=== PATIENT | female | born 1965 | race Caucasian/White ===

== ENCOUNTER 2017-05-23 22:16 | Observation (INO) | payer BC, OTHER ==
[2017-05-23] MEDS ORDERED: Zofran 4 MG/2 ML VIAL ONE (22:28)
[2017-05-23] MEDS ORDERED: Sodium Chloride 0.9% 1000 ML 1,000 ML ONE ×2 (22:29→23:15)
[2017-05-23] MEDS ORDERED: Sodium Chloride 0.9% 1000 ML 1,000 ML IV STA ×2 (22:37→23:20)
[2017-05-23] MEDS ORDERED: Zofran 4 MG/2 ML VIAL IV ONE (22:37)
--- NOTE | 2017-05-23 22:44 | ERPHSYRPT ---
- History of Present Illness Time Seen by Provider: 05/23/17 22:39 Source: patient Exam Limitations: no limitations Physician History: The patient is a 52-year-old female brought in by a neighbor complaining of vomiting excessively for 3 days. She believes that she may have passed out earlier today. She is lightheaded upon standing. Her abdomen hurts. She denies diarrhea. Her past medical history is significant for hypertension and anxiety. She does not drink alcohol. Timing/Duration: day(s) (3) Severity: severe Modifying Factors: Improves With: nothing Associated Symptoms: nausea, vomiting, abdominal pain Allergies/Adverse Reactions: cefoxitin [Cefoxitin] Allergy (Verified 05/23/17 22:41) Hives morphine Allergy (Verified 05/23/17 22:41) Swelling Home Medications: No Home Meds [No Home Meds] 1 [facility] UD 12/02/13 [History] Hx Tetanus, Diphtheria Vaccination/Date Given: Yes Hx Influenza Vaccination/Date Given: No Hx Pneumococcal Vaccination/Date Given: No - Review of Systems Constitutional: Weakness Eyes: No Symptoms Ears, Nose, & Throat: No Symptoms Respiratory: No Cough, No Dyspnea Cardiac: No Chest Pain, No Edema, No Syncope Abdominal/Gastrointestinal: Abdominal Pain, Nausea, Vomiting Genitourinary Symptoms: No Dysuria Musculoskeletal: No Back Pain, No Neck Pain Skin: No Rash Neurological: No Dizziness, No Focal Weakness, No Sensory Changes Psychological: No Symptoms Endocrine: No Symptoms Hematologic/Lymphatic: No Symptoms Immunological/Allergic: No Symptoms All Other Systems: Reviewed and Negative - Past Medical History Pertinent Past Medical History: Yes Neurological History: No Pertinent History ENT History: No Pertinent History Cardiac History: No Pertinent History Respiratory History: No Pertinent History Endocrine Medical History: No Pertinent History Musculoskeletal History: No Pertinent History History: Other Psycho-Social History: Anxiety, Depression - Past Surgical History Past Surgical History: Yes Female Surgical History: Hysterectomy Other Surgical History: bone marrow - Social History Smoking Status: Current every day smoker How long have you smoked: 4 Exposure to second hand smoke: Yes Drug Use: none Patient Lives Alone: No - Female History Hx Now: No - Nursing Vital Signs Nursing Vital Signs: Initial Vital Signs Temperature 97.6 F 05/23/17 22:17 Pulse Rate 134 H 05/23/17 22:17 Respiratory Rate 24 05/23/17 22:17 Blood Pressure 87/58 05/23/17 22:17 O2 Sat by Pulse Oximetry 98 05/23/17 22:17 Pain Scale Pain Intensity 0 - Physical Exam General Appearance: moderate distress Eye Exam: PERRL/EOMI, eyes nml inspection Ears, Nose, Throat Exam: dry mucous membranes Neck Exam: normal inspection, non-tender, supple, full range of motion Respiratory Exam: normal breath sounds, lungs clear, No respiratory distress Cardiovascular Exam: tachycardia Gastrointestinal/Abdomen Exam: tenderness Pelvic Exam: not done Rectal Exam: not done Back Exam: normal inspection, normal range of motion, No CVA tenderness, No vertebral tenderness Extremity Exam: normal inspection, normal range of motion, pelvis stable Neurologic Exam: alert, oriented x 3, cooperative, normal mood/affect, nml cerebellar function, nml station & gait, sensation nml, No motor deficits Skin Exam: normal color, warm, dry, No rash Lymphatic Exam: No adenopathy SpO2 Interpretation: normal - Radiology Exams Abdomen X-ray Interpretation: Interpreted by me, Negative (NO obstruction. Increased colonic fecal load, Neg chest.) Ordered Tests: Active Orders 24 hr Category Date Time Status IV Insertion STAT Care 05/23/17 22:37 Active Orthostatic Vital Signs STAT Care 05/23/17 22:37 Active OBSTR/ACUTE ABDOMEN SERIES Stat Exams 05/23/17 22:37 Taken CBC W DIFF Stat Lab 05/23/17 22:30 Completed CMP Stat Lab 05/23/17 22:30 Completed HCG QUALITATIVE,SERUM Stat Lab 05/23/17 22:30 Completed LIPASE Stat Lab 05/23/17 22:30 Completed Lactic Acid Stat Lab 05/23/17 22:50 Results UA W/ MICROSCOPIC Stat Lab 05/23/17 22:30 Completed Medication Summary Generic Name Dose Route Start Last Admin Trade Name Freq PRN Reason Stop Dose Admin Sodium Chloride 1,000 mls @ 999 mls/hr 05/23/17 22:37 05/23/17 22:41 Sodium Chloride 0.9% 1000 Ml IV 05/23/17 23:37 999 mls/hr .Q1H1M STA Administration Potassium Chloride 20 meq in 100 mls @ 50 mls/hr 05/23/17 23:21 05/23/17 23: 26 Potassium Chloride 20 Meq In Water 100ml IV 05/24/17 01:20 50 mls/hr STAT ONE Administration Sodium Chloride 1,000 mls @ 999 mls/hr 05/23/17 23:20 05/23/17 23:26 Sodium Chloride 0.9% 1000 Ml IV 05/24/17 00:20 999 mls/hr .Q1H1M STA Administration Discontinued Medications Generic Name Dose Route Start Last Admin Trade Name Sonam PRN Reason Stop Dose Admin Sodium Chloride Confirm 05/23/17 22:29 Sodium Chloride 0.9% 1000 Ml Administered 05/23/17 22:30 Dose 1,000 mls @ ud .ROUTE .STK-MED ONE Sodium Chloride Confirm 05/23/17 23:15 Sodium Chloride 0.9% 1000 Ml Administered 05/23/17 23:16 Dose 1,000 mls @ ud .ROUTE .STK-MED ONE Potassium Chloride Confirm 05/23/17 23:16 Potassium Chloride 20 Meq In Water 100ml Administered 05/23/17 23:17 Dose 100 mls @ ud IV .STK-MED ONE Ondansetron HCl Confirm 05/23/17 22:28 Zofran 4 Mg/2 Ml Vial Administered 05/23/17 22:29 Dose 4 mg .ROUTE .STK-MED ONE Ondansetron HCl 4 mg 05/23/17 22:37 05/23/17 22:41 Zofran 4 Mg/2 Ml Vial IV 05/23/17 22:38 4 mg STAT ONE Administration Lab/Rad Data: Laboratory Result Diagrams 05/23/17 22:30 05/23/17 22:30 Laboratory Results 05/23/17 05/23/17 05/23/17 Range/Units 22:50 22:30 22:30 WBC 17.1 H (4.0-10.5) K/mm3 RBC 4.33 (4.1-5.4) M/mm3 Hgb 13.9 (12.0-16.0) gm/dl Hct 41.0 (35-47) % MCV 94.7 (78-100) fl MCH 32.1 H (26-32) pg MCHC 33.9 (32-36) g/dl RDW 12.7 (11.5-14.0) % Plt Count 845 H (150-450) K/mm3 MPV 9.3 (6-9.5) fl Gran % 78.0 H (36.0-66.0) % Lymphocytes % 15.2 L (24.0-44.0) % Monocytes % 6.6 (0.0-12.0) % Eosinophils % 0.1 (0.00-5.0) % Basophils % 0.1 (0.0-0.4) % Basophils # 0.02 (0-0.4) Sodium (136-145) mEq/L Potassium (3.5-5.1) mEq/L Chloride (98-107) mEq/L Carbon Dioxide (21-32) mEq/L Anion Gap (5-15) MEQ/L BUN (9-20) mg/dL Creatinine (0.55-1.30) mg/dl Estimated GFR ML/MIN Glucose (70-110) MG/DL Lactic Acid 5.8 H (0.4-2.0) Calcium (8.5-10.1) mg/dL Total Bilirubin (0.2-1.0) mg/dL AST (15-37) U/L ALT (12-78) U/L Alkaline Phosphatase (46-116) U/L Serum Total Protein (6.4-8.2) gm/dL Albumin (3.4-5.0) g/dL Lipase (73-393) U/L Serum , Qual NEGATIVE (Negative) Ur Collection Type Urine Color (YELLOW) Urine Appearance (CLEAR) Urine pH (5-6) Ur Specific [place] (1.005-1.025) Urine Protein (Negative) Urine Ketones (NEGATIVE) Urine Blood (0-5) Stephen/ul Urine Nitrite (NEGATIVE) Urine Bilirubin (NEGATIVE) Urine Urobilinogen (0-1) mg/dL Ur Leukocyte Esterase (NEGATIVE) Urine Microscopic RBC (0-2) /HPF Urine Microscopic WBC (0-5) /HPF Ur Epithelial Cells (FEW) /HPF Urine Glucose (NEGATIVE) mg/dL Specimen Received 05/23/17 05/23/17 Range/Units 22:30 22:30 WBC (4.0-10.5) K/mm3 RBC (4.1-5.4) M/mm3 Hgb (12.0-16.0) gm/dl Hct (35-47) % MCV (78-100) fl MCH (26-32) pg MCHC (32-36) g/dl RDW (11.5-14.0) % Plt Count (150-450) K/mm3 MPV (6-9.5) fl Gran % (36.0-66.0) % Lymphocytes % (24.0-44.0) % Monocytes % (0.0-12.0) % Eosinophils % (0.00-5.0) % Basophils % (0.0-0.4) % Basophils # (0-0.4) Sodium 138 (136-145) mEq/L Potassium 2.9 L* (3.5-5.1) mEq/L Chloride 89 L (98-107) mEq/L Carbon Dioxide 27.4 (21-32) mEq/L Anion Gap 23.5 H (5-15) MEQ/L BUN 49 H (9-20) mg/dL Creatinine 2.93 H (0.55-1.30) mg/dl Estimated GFR 18 ML/MIN Glucose 155 H (70-110) MG/DL Lactic Acid (0.4-2.0) Calcium 11.0 H (8.5-10.1) mg/dL Total Bilirubin 0.40 (0.2-1.0) mg/dL AST 15 (15-37) U/L ALT 14 (12-78) U/L Alkaline Phosphatase 92 (46-116) U/L Serum Total Protein 9.5 H (6.4-8.2) gm/dL Albumin 4.7 (3.4-5.0) g/dL Lipase 289 (73-393) U/L Serum , Qual (Negative) Ur Collection Type CLEAN CATCH Urine Color YELLOW (YELLOW) Urine Appearance SLIGHTLY CLOUDY (CLEAR) Urine pH 5.0 (5-6) Ur Specific [place] 1.025 (1.005-1.025) Urine Protein TRACE (Negative) Urine Ketones NEGATIVE (NEGATIVE) Urine Blood 50 (0-5) Stephen/ul Urine Nitrite NEGATIVE (NEGATIVE) Urine Bilirubin NEGATIVE (NEGATIVE) Urine Urobilinogen NORMAL (0-1) mg/dL Ur Leukocyte Esterase 2+ (NEGATIVE) Urine Microscopic RBC 0-2 (0-2) /HPF Urine Microscopic WBC 2-5 (0-5) /HPF Ur Epithelial Cells FEW (FEW) /HPF Urine Glucose NEGATIVE (NEGATIVE) mg/dL Specimen Received 05/23/17:2230 - Progress Progress: improved Discussed with : Anne Will see patient in: hospital (observation) Counseled pt/family regarding: lab results, diagnosis, rad results - Departure Time of Disposition: 23:31 Departure Disposition: Observation (per Dr Rodríguez.) Clinical Impression: Vomiting, Dehydration, Hypokalemia Condition: Stable Critical Care Time: No Referrals: XENIA MCCANN MD [Primary Care Provider] - Additional Instructions: You have vomiting which has led to severe dehydration and to a lowered serum potassium level. You're being admitted for IV hydration and potassium repletion per Dr. Rodríguez.
[2017-05-23 22:45] LABS: BASOPHIL % 0.1 % (0.0-0.4); Eosinophil % 0.1 % (0.00-5.0); Lymphocytes % 15.2 % (24.0-44.0); Mean Cell Volume 94.7 fl (78-100); Mean Corpuscular Hemoglobin 32.1 pg (26-32); Mean Platelet Volume 9.3 fl (6-9.5); Monocytes % 6.6 % (0.0-12.0); Platelet Count 845 K/mm3 (150-450); Red Blood Count 4.33 M/mm3 (4.1-5.4); Red Cell Distribution Width 12.7 % (11.5-14.0); White Blood Count 17.1 K/mm3 (4.0-10.5)
[2017-05-23 22:52] LABS: ALBUMIN 4.7 g/dL (3.4-5.0); ANION GAP 23.5 MEQ/L (5-15); BILIRUBIN,TOTAL 0.4 mg/dL (0.2-1.0); Carbon Dioxide 27.4 mEq/L (21-32); Total Protein 9.5 gm/dL (6.4-8.2)
[2017-05-23 22:53] LABS: ADD URINE CULTURE? NO (NO); Bilirubin NEGATIVE (NEGATIVE); Blood 50 Ery/ul (0-5); COMPLETE URINE MICROSCOPIC? YES; Collection Type CLEAN CATCH; Epithelial Cells FEW /HPF (FEW); Glucose NEGATIVE (NEGATIVE); Leukocyte Esterase 2+ (NEGATIVE)
[2017-05-23 22:55] LABS: Lactic Acid 5.8 (0.4-2.0)
[2017-05-23 22:56] LABS: Potassium 2.9 mEq/L (3.5-5.1)
[2017-05-23] MEDS ORDERED: POTASSIUM CHLORIDE 20 mEq IN WATER 100ML 100 ML IV ONE (23:16)
[2017-05-23] MEDS ORDERED: POTASSIUM CHLORIDE 20 mEq IN WATER 100ML 20 MEQ/100 ML BAG IV ONE (23:21)
[2017-05-24] MEDS ORDERED: POTASSIUM CHLORIDE 20 mEq IN WATER 100ML 20 MEQ/100 ML BAG IV ONE (00:13)
[2017-05-24] MEDS: Lactated Ringers 1,000 ML IV SCH ×3 (01:22→17:24)
[2017-05-24] MEDS: Phenergan 25 MG INJ IV PRN ×4 (01:22→21:47)
[2017-05-24] MEDS: Zofran 4 MG/2 ML VIAL IV PRN ×3 (05:21→17:18)
--- NOTE | 2017-05-24 06:57 | XRAY ---
Indication: Emesis. Syncopal episode. Comparison: Chest exam December 02, 2013. 2 views of the abdomen nonacute and nonobstructed with mild scattered colonic fecal debris. Solid organs and osseous structures unremarkable. Single AP chest again hyperinflated and clear with again a few incidental calcified granulomas. Heart is not enlarged. Bony thorax intact. Impression: Negative abdomen. Stable nonacute hyperinflated chest.
[2017-05-24 07:03] LABS: BASOPHIL % 0.1 % (0.0-0.4); Eosinophil % 0.1 % (0.00-5.0); Granulocytes % 79.1 % (36.0-66.0); Lymphocytes % 13.4 % (24.0-44.0); Mean Cell Volume 96.8 fl (78-100); Mean Platelet Volume 9.5 fl (6-9.5); Monocytes % 7.3 % (0.0-12.0); Platelet Count 677 K/mm3 (150-450); Red Blood Count 3.47 M/mm3 (4.1-5.4); Red Cell Distribution Width 12.7 % (11.5-14.0); White Blood Count 16.4 K/mm3 (4.0-10.5)
[2017-05-24 07:05] LABS: Mean Corpuscular Hemoglobin 32.2 pg (26-32)
[2017-05-24 07:14] LABS: ANION GAP 14.6 MEQ/L (5-15); Carbon Dioxide 30.5 mEq/L (21-32); Potassium 3.2 mEq/L (3.5-5.1)
[2017-05-24] MEDS: SUBLIMAZE 100 MCG/2 ML IV PRN ×3 (07:59→17:13)
[2017-05-24] MEDS: POTASSIUM CHLORIDE 20 mEq IN WATER 100ML 20 MEQ/100 ML BAG IV SCH ×2 (09:26→11:41)
[2017-05-24] MEDS: Ativan 2 MG/1 ML VIAL IV PRN ×2 (10:57→21:15)
[2017-05-24] MEDS: PROTONIX 40 MG IV IV SCH (10:58)
--- NOTE | 2017-05-24 11:07 | PCM.HP ---
History of Present Illness - Chief Complaint Chief Complaint: vomiting History of Present Illness: is a 52 year old female pt who came to the ER c/o 3d of vomiting green material. She thought she vomited 30-50 times yesterday. She had not urinated for a day and a half. No fever. Some intermittent epigastric pain. She was found to have BUN of 49 and Cr of 2.93. She was given 2L of fluid in the ER and admitted on antiemetics. Plain film of abdomen without acute findings. WBC 17.1. She continued to vomit overnight although we added phenergan to the zofran prn. She had 1500 cc out all night from vomiting. This morning she states her epigastric pain is 4/10 and is better than at admission. She has been sipping some water. No diarrhea. - Review of Systems Constitutional: No Fever Abdominal/Gastrointestinal: Abdominal Pain, Nausea, Vomiting, Appetite Changes, No Diarrhea Genitourinary Symptoms: Other (no urination x 1.5d until in the hospital) Musculoskeletal: Fall (lost consciousness when going to the bathroom) Neurological: Dizziness Psychological: No Anxiety, No Depression, No Suicidal Ideations All Other Systems: Reviewed and Negative Medications & Allergies Home Medications: Home Medication List Alprazolam 1 mg [Xanax 1 mg] 1 mg PO QID 05/24/17 [History Confirmed 05/24] Aspirin 81 mg PO DAILY 05/24/17 [History Confirmed 05/24/17] Lisinopril/Hydrochlorothiazide [Lisinopril-Hctz 10-12.5 mg Tab] 1 each PO DAILY 05/24/17 [History Confirmed 05/24/17] Metoprolol Succinate 50 mg PO DAILY 05/24/17 [History Confirmed 05/24/17] Pantoprazole Sodium [Protonix] 20 mg PO DAILY 05/24/17 [History Confirmed ] Allergies/Adverse Reactions: Allergies Allergy/AdvReac Type Severity Reaction Status Date / Time cefoxitin [Cefoxitin] Allergy Hives Verified 05/23/17 22:41 morphine Allergy Itching, Verified 05/24/17 07:07 Nausea - Past Medical History Past Medical History: Yes Neurological History: No Pertinent History ENT History: No Pertinent History Cardiac History: No Pertinent History Respiratory History: No Pertinent History Endocrine Medical History: No Pertinent History Musculoskelatal History: No Pertinent History History: Other Pyscho-Social History: Anxiety, Depression Comment: hiatal hernia - Female History Hx Last Menstrual Period: hysterectomy Are you now?: No - Past Surgical History Past Surgical History: Yes Female Surgical History: Hysterectomy Other Surgical History: bone marrow - Social History Smoking Status: Current every day smoker How long have you smoked: 4 Exposure to second hand smoke: Yes Alcohol: None Drug Use: none - Physical Exam Vital Signs: Vital Signs - 24 hr Temp Pulse Resp BP Pulse Ox 05/24/17 07:19 97.9 F 92 H 20 130/71 97 05/24/17 04:00 99.2 F 88 18 125/67 98 05/24/17 00:34 99.3 F 90 16 126/61 98 05/24/17 00:05 86 16 124/76 96 05/23/17 23:08 86 20 109/68 96 05/23/17 22:44 99.3 F 98 H 22 108/41 95 05/23/17 22:17 97.6 F 134 H 24 87/58 98 General Appearance: no apparent distress, alert Neurologic Exam: oriented x 3, cooperative Eye Exam: eyes nml inspection Ears, Nose, Throat Exam: moist mucous membranes Neck Exam: normal inspection, non-tender, No lymphadenopathy Respiratory Exam: wheezing (on R, RLL>RUL), other (good air exchange), No crackles/rales, No rhonchi Cardiovascular Exam: regular rate/rhythm, normal heart sounds, No murmur Gastrointestinal/Abdomen Exam: soft, normal bowel sounds, tenderness (epigsatrum ), No distention, No mass, No guarding, No rebound Back Exam: normal inspection Extremity Exam: No pedal edema, No swelling Results - Labs Lab/Micro Results: Lab Results-Last 24 Hours 05/24/17 05/24/17 05/24/17 Range/Units 01:50 04:00 05:35 WBC (4.0-10.5) K/mm3 RBC (4.1-5.4) M/mm3 Hgb (12.0-16.0) gm/dl Hct (35-47) % MCV (78-100) fl MCH (26-32) pg MCHC (32-36) g/dl RDW (11.5-14.0) % Plt Count (150-450) K/mm3 MPV (6-9.5) fl Gran % (36.0-66.0) % Lymphocytes % (24.0-44.0) % Monocytes % (0.0-12.0) % Eosinophils % (0.00-5.0) % Basophils % (0.0-0.4) % Basophils # (0-0.4) Sodium 140 (136-145) mEq/L Potassium 3.2 L (3.5-5.1) mEq/L Chloride 98 (98-107) mEq/L Carbon Dioxide 30.5 (21-32) mEq/L Anion Gap 14.6 (5-15) MEQ/L BUN 50 H (9-20) mg/dL Creatinine 1.61 H (0.55-1.30) mg/dl Estimated GFR 36 ML/MIN Glucose 112 H (70-110) MG/DL Lactic Acid 1.1 1.1 (0.4-2.0) Calcium 9.0 (8.5-10.1) mg/dL 05/24/17 05/24/17 Range/Units 05:35 08:32 WBC 16.4 H (4.0-10.5) K/mm3 RBC 3.47 L (4.1-5.4) M/mm3 Hgb 11.2 L (12.0-16.0) gm/dl Hct 33.6 L (35-47) % MCV 96.8 (78-100) fl MCH 32.2 H (26-32) pg MCHC 33.3 (32-36) g/dl RDW 12.7 (11.5-14.0) % Plt Count 677 H (150-450) K/mm3 MPV 9.5 (6-9.5) fl Gran % 79.1 H (36.0-66.0) % Lymphocytes % 13.4 L (24.0-44.0) % Monocytes % 7.3 (0.0-12.0) % Eosinophils % 0.1 (0.00-5.0) % Basophils % 0.1 (0.0-0.4) % Basophils # 0.01 (0-0.4) Sodium (136-145) mEq/L Potassium 3.0 L* (3.5-5.1) mEq/L Chloride (98-107) mEq/L Carbon Dioxide (21-32) mEq/L Anion Gap (5-15) MEQ/L BUN (9-20) mg/dL Creatinine (0.55-1.30) mg/dl Estimated GFR ML/MIN Glucose (70-110) MG/DL Lactic Acid (0.4-2.0) Calcium (8.5-10.1) mg/dL Assessment/Plan (1) Acute renal failure (ARF) Current Visit: Yes Status: Acute Qualifiers: Acute renal failure type: unspecified Qualified Code(s): N17.9 - Acute kidney failure, unspecified Assessment & Plan: Due to dehydration. Improved overnight, but not back to normal. BUN is still quite elevated. Will continue rehydrating and check again in the morning. Complicated by the fact that pt is still vomiting. (2) Dehydration Current Visit: Yes Status: Acute Assessment & Plan: Repleting fluids. Will give another bolus or two today of LR. Code(s): E86.0 - DEHYDRATION (3) Wheezing Current Visit: Yes Status: Acute Assessment & Plan: Will get CXR, could have occult pneumonia that was not visible in her dehydrated state. Albuterol nebs. With her smoking history could well have COPD. Code(s): R06.2 - WHEEZING (4) Hypokalemia Current Visit: Yes Status: Acute Assessment & Plan: K+ 3.0 this morning - repleting with K+ rider and will recheck Mg post-infusion. Code(s): E87.6 - HYPOKALEMIA (5) Vomiting Current Visit: Yes Status: Acute Qualifiers: Vomiting type: bilious vomiting Nausea presence: with nausea Qualified Code(s): R11.14 - Bilious vomiting Assessment & Plan: will continue anti-emetics. Will increase her phenergan to 25mg IV q6h. Code(s): R11.10 - VOMITING, UNSPECIFIED (6) Abdominal pain Current Visit: Yes Status: Acute Qualifiers: Abdominal location: epigastric Qualified Code(s): R10.13 - Epigastric pain Assessment & Plan: seems consistent with her intractable vomiting over the past 3-4 days. However any worsening in pain (or failure to resolve or improve greatly over the next 12 -24 hours) and I would order a CT abd/pelvis. Code(s): R10.9 - UNSPECIFIED ABDOMINAL PAIN
[2017-05-24] MEDS ORDERED: PROVENTIL 2.5 MG/3 ML NEB IH PRN (11:14)
[2017-05-24 16:32] LABS: MAGNESIUM 1.7 mg/dL (1.8-2.4); Potassium 3.5 mEq/L (3.5-5.1)
--- NOTE | 2017-05-24 20:22 | XRAY ---
Indication: Wheezing and cough. Comparison: One day earlier. PA/lateral chest unchanged again hyperinflated and clear. Heart is not enlarged. No new/acute findings. Comment: Preliminary interpretation was made by [facility]. No discrepancy.
[2017-05-25] MEDS: Lactated Ringers 1,000 ML IV SCH ×3 (01:30→17:11)
[2017-05-25] MEDS: SUBLIMAZE 100 MCG/2 ML IV PRN ×3 (02:01→15:35)
[2017-05-25] MEDS: Zofran 4 MG/2 ML VIAL IV PRN ×2 (02:02→08:16)
[2017-05-25] MEDS: Ativan 2 MG/1 ML VIAL IV PRN ×4 (04:55→16:34)
[2017-05-25] MEDS: Phenergan 25 MG INJ IV PRN ×2 (04:55→17:13)
[2017-05-25 06:38] LABS: Mean Cell Volume 97.8 fl (78-100); Mean Corpuscular Hemoglobin 32.4 pg (26-32); Mean Platelet Volume 9.6 fl (6-9.5); Platelet Count 581 K/mm3 (150-450); Red Blood Count 3.24 M/mm3 (4.1-5.4); Red Cell Distribution Width 12.4 % (11.5-14.0); White Blood Count 14.3 K/mm3 (4.0-10.5)
[2017-05-25 06:54] LABS: ALBUMIN 3.3 g/dL (3.4-5.0); ALKALINE PHOSPHATASE 60 U/L (46-116); ANION GAP 13.6 MEQ/L (5-15); BLOOD UREA NITROGEN 24 mg/dL (9-20); CHLORIDE 101 mEq/L (98-107); Carbon Dioxide 26.5 mEq/L (21-32); Glucose 97 MG/DL (70-110); Potassium 3.4 mEq/L (3.5-5.1); SGOT/AST 15 U/L (15-37); SGPT/ALT 11 U/L (12-78); SODIUM 138 mEq/L (136-145); Total Protein 6.6 gm/dL (6.4-8.2)
--- NOTE | 2017-05-25 08:07 | PCM.NOTE ---
Date and Time: 05/25/17804 Subjective Assessment: patient has persistent nausea and vomiting, unable to keep liquids down. has some epigastric pain and feels like something stuck in her throat at times. Objective Exam General Appearance: no apparent distress, alert Respiratory Exam: normal breath sounds, lungs clear, No respiratory distress Cardiovascular Exam: regular rate/rhythm, normal heart sounds Gastrointestinal/Abdomen Exam: soft, normal bowel sounds, tenderness (mild epigastric) Extremity Exam: normal inspection, normal range of motion OBJECTIVE DATA Vital Signs: Vital Signs - 24 hr Temp Pulse Resp BP Pulse Ox 05/25/17 07:34 98.8 F 100 H 18 150/88 100 05/25/17 04:28 99.1 F 104 H 16 142/85 93 L 05/24/17 23:41 99.2 F 104 H 16 133/88 94 L 05/24/17 20:21 93 H 18 96 05/24/17 20:00 97.6 F 100 H 17 137/71 93 L 05/24/17 16:37 98.2 F 92 H 18 124/68 97 05/24/17 13:36 104 H 20 96 05/24/17 12:31 98.2 F 98 H 20 126/71 96 Pain Assessment - Last Documented Pain Intensity 4 Pain Scale Used 0-10 Pain Scale Intake and Output: Intake & Output 05/22/17 05/23/17 05/24/17 05/25/17 11:59 11:59 11:59 11:59 Intake Total 1972 3465 Output Total 1705 3525 Balance 267 -60 Weight 52.617 kg Lab Results: Lab Results-Last 24 Hours 05/24/17 05/24/17 05/24/17 Range/Units 04:00 08:32 16:15 WBC (4.0-10.5) K/mm3 RBC (4.1-5.4) M/mm3 Hgb (12.0-16.0) gm/dl Hct (35-47) % MCV (78-100) fl MCH (26-32) pg MCHC (32-36) g/dl RDW (11.5-14.0) % Plt Count (150-450) K/mm3 MPV (6-9.5) fl Sodium (136-145) mEq/L Potassium 3.0 L* 3.5 (3.5-5.1) mEq/L Chloride (98-107) mEq/L Carbon Dioxide (21-32) mEq/L Anion Gap (5-15) MEQ/L BUN (9-20) mg/dL Creatinine (0.55-1.30) mg/dl Estimated GFR ML/MIN Glucose (70-110) MG/DL Calcium (8.5-10.1) mg/dL Magnesium Cancelled 1.7 L Total Bilirubin (0.2-1.0) mg/dL AST (15-37) U/L ALT (12-78) U/L Alkaline Phosphatase (46-116) U/L Serum Total Protein (6.4-8.2) gm/dL Albumin (3.4-5.0) g/dL 05/25/17 05/25/17 Range/Units 05:50 05:50 WBC 14.3 H (4.0-10.5) K/mm3 RBC 3.24 L (4.1-5.4) M/mm3 Hgb 10.5 L (12.0-16.0) gm/dl Hct 31.7 L (35-47) % MCV 97.8 (78-100) fl MCH 32.4 H (26-32) pg MCHC 33.1 (32-36) g/dl RDW 12.4 (11.5-14.0) % Plt Count 581 H (150-450) K/mm3 MPV 9.6 H (6-9.5) fl Sodium 138 (136-145) mEq/L Potassium 3.4 L (3.5-5.1) mEq/L Chloride 101 (98-107) mEq/L Carbon Dioxide 26.5 (21-32) mEq/L Anion Gap 13.6 (5-15) MEQ/L BUN 24 H (9-20) mg/dL Creatinine 0.65 (0.55-1.30) mg/dl Estimated GFR > 60 ML/MIN Glucose 97 (70-110) MG/DL Calcium 9.2 (8.5-10.1) mg/dL Magnesium Total Bilirubin 0.50 (0.2-1.0) mg/dL AST 15 (15-37) U/L ALT 11 L (12-78) U/L Alkaline Phosphatase 60 (46-116) U/L Serum Total Protein 6.6 (6.4-8.2) gm/dL Albumin 3.3 L (3.4-5.0) g/dL Radiology Exams: Radiology Procedures Category Date Time Status CHEST 2 VIEWS (PA AND LAT) Routine Exams 05/24/17 Completed GALLBLADDER [US] Stat Exams 05/25/17 Ordered Assessment/Plan (1) Abdominal pain Current Visit: Yes Status: Acute Qualifiers: Abdominal location: epigastric Qualified Code(s): R10.13 - Epigastric pain Assessment & Plan: check gb u/s this am, may need to consider EGD if vomiting persists Code(s): R10.9 - UNSPECIFIED ABDOMINAL PAIN (2) Acute renal failure (ARF) Current Visit: Yes Status: Acute Qualifiers: Acute renal failure type: unspecified Qualified Code(s): N17.9 - Acute kidney failure, unspecified (3) Dehydration Current Visit: Yes Status: Acute Code(s): E86.0 - DEHYDRATION (4) Vomiting Current Visit: Yes Status: Acute Qualifiers: Vomiting type: bilious vomiting Nausea presence: with nausea Qualified Code(s): R11.14 - Bilious vomiting Code(s): R11.10 - VOMITING, UNSPECIFIED
--- NOTE | 2017-05-25 09:19 | XRAY ---
Indication: Nausea and vomiting. Two-dimensional right upper quadrant abdominal sonogram performed. Comparison: None Gallbladder partially contracted with wall thickening up to 3.5 mm. No gallstones or pericholecystic fluid. Common bile duct measures 8.3 mm. No intrahepatic biliary distention. [employer] notes a moderately fluid distended structure in the left upper quadrant of uncertain etiology. Remaining visualized portions of the liver, pancreas, and right kidney appear unremarkable. Right kidney measures 11.1 cm in length. No ascites. Impression: 1. Gallbladder wall thickening without gallstones. Rule out acalculous cholecystitis. 2. Distended common bile duct. ERCP or MRCP may yield further information. 3. Abnormal fluid distended structure in the left upper quadrant. CT abdomen with IV and enteric contrast may yield further information.
[2017-05-25] MEDS ORDERED: Phenergan 25 MG INJ IV ONE (10:30)
[2017-05-25] MEDS: PROTONIX 40 MG IV IV SCH (11:15)
--- NOTE | 2017-05-25 12:14 | XRAY ---
Indication: Nausea and vomiting. Multiple contiguous axial images obtained through the abdomen and pelvis using 80 cc Isovue 370 contrast. Patient was unable to tolerate enteric contrast. Comparison: None Lung bases demonstrates minimal fibrosis/scarring and medial left base calcified granuloma. Heart is not enlarged. There is a heterogeneously enhancing soft tissue mass just inferior to the pancreatic head measuring at least 2.2 x 7 cm in greatest axial dimension. There are also several associated cysts, largest measuring 1.2 x 2.5 cm. Finding is difficult to differentiate pancreatic etiology (i.e. serous cystadenoma) from lymphadenopathy (necrotic lymphadenopathy). No suspicious calcifications. There is mass effect on the IVC. Remaining pancreatic body and tail unremarkable. Stomach is markedly fluid distended. Duodenal cap and descending duodenum demonstrates abnormal wall thickening up to 7 mm concerning for tumor extension with partial gastric outlet obstruction. Remaining bowel loops appear nonobstructed. Normal appendix. No free fluid/air. Tiny 4 mm left mid renal and right upper cortical cysts. Remaining liver, gallbladder, spleen, adrenal glands, kidneys, ureters, bladder, and aorta appear unremarkable. No pathologic retroperitoneal lymphadenopathy. Osseous structures intact with mild lumbosacral junction degenerative disc disease. Impression: 1. Abnormal heterogeneously enhancing mass with cystic component just inferior to the pancreatic head as detailed. Rule out serous cystadenoma versus necrotic lymphadenopathy. MRI may yield further information if clinically warranted. 2. Abnormal duodenal cap and duodenal wall thickening worrisome for tumor extension. Stomach is abnormally fluid distended presumed due to partial obstruction. 3. Incidental bilateral tiny renal cyst. CT DI 9.13
[2017-05-25] MEDS ORDERED: Zofran 4 MG/2 ML VIAL IV PRN (13:12)
[2017-05-25 20:11] VITALS: BP 152/82; PULSE 118; O2SAT 97
--- NOTE | 2017-05-26 08:32 | XRAY ---
Indication: NG tube placement. Comparison: One day earlier. Portable chest demonstrates new NG tube traversing the chest with the tip in the stomach. Lungs remain hyperinflated and clear. Heart is not enlarged. No new cardiopulmonary abnormalities.
== END 2017-05-25 21:30 | disposition short-term general hospital (02) ==
LOC: ED 22:16 → MED SURG 05-24 00:10
PROVIDERS: ADMIT Family Medicine; ATTEND Family Medicine
DX: N17.9 Acute kidney failure, unspecified (principal); E86.0 Dehydration; E87.6 Hypokalemia; R10.9 Unspecified abdominal pain
CPT/HCPCS: 36000; 36415; 71010; 71020; 74022; 74177; 76705; 80048; 80053; 81000; 82962; 83605; 83690; 83735; 84132; 84703; 85025; 85027; 93041; 93268; 94640; 94760; 96360; 96365; 99285; G0378; J2060; J2405; J2550; J3010; J3480; A9270-GY

== ENCOUNTER 2018-06-26 13:21 | Emergency (ER) | payer OTHER ==
[2018-06-26] MEDS ORDERED: TORAdol 30 mg Injection IM ONE (13:36)
--- NOTE | 2018-06-26 13:36 | ERPHSYRPT ---
- History of Present Illness Time Seen by Provider: 06/26/18 13:32 Source: patient Exam Limitations: no limitations Physician History: The patient is a 53-year-old female complaining that her dog accidentally pulled on his leash, causing her to fall, striking her lower left rib cage on a curb. This happened 2 days ago. It now hurts for her to move her trunk, cough , sneeze, or breathe deeply. Her past medical history significant for pancreatitis. Occurred: days ago (2) Reason for Fall: tripped, fell from standing pos Injuries/Pain Location: chest Loss of Consciousness: no loss of consciousness Quality: sharpness Severity of Pain-Max: severe Severity of Pain-Current: severe Modifying Factors: Improves With: nothing Associated Symptoms (Fall): chest pain, No shortness of breath Allergies/Adverse Reactions: cefoxitin [Cefoxitin] Allergy (Verified 05/23/17 22:41) Hives morphine Allergy (Verified 05/24/17 07:07) Itching, Nausea Home Medications: Alprazolam 1 mg [Xanax 1 mg] 1 mg PO QID 05/24/17 [History] Aspirin 81 mg PO DAILY 05/24/17 [History] Lisinopril/Hydrochlorothiazide [Lisinopril-Hctz 10-12.5 mg Tab] 1 each PO DAILY 05/24/17 [History] Metoprolol Succinate 50 mg PO DAILY 05/24/17 [History] Pantoprazole Sodium [Protonix] 20 mg PO DAILY 05/24/17 [History] Hx Tetanus, Diphtheria Vaccination/Date Given: Yes Hx Influenza Vaccination/Date Given: No Hx Pneumococcal Vaccination/Date Given: No - Review of Systems Constitutional: No Fever, No Chills Eyes: No Symptoms Ears, Nose, & Throat: No Symptoms Respiratory: No Cough, No Dyspnea Cardiac: Chest Pain Abdominal/Gastrointestinal: No Abdominal Pain, No Nausea, No Vomiting, No Diarrhea Genitourinary Symptoms: No Dysuria Musculoskeletal: Fall, Injury Skin: No Rash Neurological: No Dizziness, No Focal Weakness, No Sensory Changes Psychological: No Symptoms Endocrine: No Symptoms Hematologic/Lymphatic: No Symptoms Immunological/Allergic: No Symptoms All Other Systems: Reviewed and Negative - Past Medical History Pertinent Past Medical History: Yes Neurological History: No Pertinent History ENT History: No Pertinent History Cardiac History: No Pertinent History Respiratory History: No Pertinent History Endocrine Medical History: No Pertinent History Musculoskeletal History: No Pertinent History History: Other Psycho-Social History: Anxiety, Depression Other Medical History: hiatal hernia - Past Surgical History Past Surgical History: Yes Female Surgical History: Hysterectomy Other Surgical History: bone marrow - Social History Smoking Status: Current every day smoker How long have you smoked: 4 Exposure to second hand smoke: Yes Drug Use: none Patient Lives Alone: No - Nursing Vital Signs Nursing Vital Signs: Initial Vital Signs Temperature 98.1 F 06/26/18 13:33 Pulse Rate 80 06/26/18 13:33 Respiratory Rate 18 06/26/18 13:33 Blood Pressure 134/107 06/26/18 13:33 O2 Sat by Pulse Oximetry 100 06/26/18 13:33 Pain Scale Pain Intensity 8 - Purnima Coma Score Best Eye Response (P[place]ima): (4) open spontaneously Best Verbal Response ([place]): (5) oriented Best Motor Response ([place]): (6) obeys commands Purnima Total: 15 - Physical Exam General Appearance: no apparent distress, alert Head Injury: no evidence of injury Eye Exam: PERRL/EOMI ENT Exam: airway nml Neck Exam: normal inspection, No tenderness Respiratory/Chest Exam: chest tenderness (left posterior inferior rib tenderness ), rib tenderness Cardiovascular Exam: normal heart sounds, regular rate/rhythm Gastrointestinal Exam: soft, No tenderness, No distention, No guarding, No ecchymosis Rectal Exam: not done Back Exam: normal inspection, No vertebral tenderness Extremity Exam: normal inspection, normal range of motion, pelvis stable, No deformities Neurologic Exam: alert, oriented x 3, cooperative, sensation nml, No motor deficits Skin Exam: normal color, warm, dry SpO2 Interpretation: normal Oxygen Delivery: Room Air - Radiology Exams Chest X-ray Interpretation: Interpreted by me, Negative (comp 2V chest 07/01/17), No Pneumothorax Left Ribs X-ray Interpretation: Interpreted by me, Displaced Fracture (left 10th rib) Ordered Tests: Active Orders 24 hr Category Date Time Status CHEST 2 VIEWS (PA AND LAT) Stat Exams 06/26/18 13:36 Taken RIBS UNILATERAL Stat Exams 06/26/18 13:36 Taken Medication Summary Discontinued Medications Generic Name Dose Route Start Last Admin Trade Name Freq PRN Reason Stop Dose Admin Ketorolac Tromethamine 60 mg 06/26/18 13:36 06/26/18 13:41 Toradol 30 Mg Injection IM 06/26/18 13:37 60 mg STAT ONE Administration Ketorolac Tromethamine Confirm 06/26/18 13:40 Toradol 30 Mg Injection Administered 06/26/18 13:41 Dose 60 mg .ROUTE .STK-MED ONE - Progress Progress: improved Counseled pt/family regarding: rad results - Departure Time of Disposition: 14:39 Departure Disposition: Home Clinical Impression: Left rib fracture Condition: Stable Critical Care Time: No Referrals: XENIA MCCANN MD [Primary Care Provider] - Additional Instructions: You have a fractured rib on the left side of her chest. You were given Toradol 60 mg IM in the ER. Take Switchback one tablet every 4-6 hours as needed for pain. You may also take ibuprofen 800 mg every 8 hours and Tylenol 1000 mg every 6-8 hours. Follow-up with your primary medical doctor as needed. Broken ribs take 6-8 weeks to heal. Prescriptions: Hydrocodone/APAP 5/325 [Switchback 5/325 mg] 1 each PO Q4-6HPRN PRN #10 tablet MDD 6 PRN Reason: Pain
[2018-06-26] MEDS ORDERED: TORAdol 30 mg Injection ONE (13:40)
[2018-06-26 14:22] VITALS: BP 147/88; PULSE 78; O2SAT 99
--- NOTE | 2018-06-26 17:44 | XRAY ---
Indication: Left rib pain following fall. Comparison: None 2 views of the left ribs obtained with cutaneous BB placed over region of pain. There is nondisplaced anterior 10th rib fracture and also old posterior 10th rib fracture. Elsewhere minimal multilevel degenerative spondylosis, minimal scoliosis, and pulmonary calcified granulomas. No other bony, articular, or soft tissue abnormalities.
--- NOTE | 2018-06-26 17:45 | XRAY ---
Indication: Left-sided pain following fall. Comparison: July 01, 2017. PA/lateral chest remains hyperinflated and clear with incidental calcified granulomas. Heart and mediastinal structures within normal limits. Bony thorax intact again with mild degenerative changes. Left ribs reported separately.
== END 2018-06-26 14:57 | disposition home or self-care (01) ==
LOC: ED 13:21
DX: S22.32XA Fracture of one rib, left side, initial encounter for closed fracture (principal); R07.9 Chest pain, unspecified; W01.198A Fall on same level from slipping, tripping and stumbling with subsequent striking against other object, initial encounter; Y93.K1 Activity, walking an animal; Z79.899 Other long term (current) drug therapy
CPT/HCPCS: 71046; 71100; 96372; 99284; J1885

== ENCOUNTER 2019-11-18 15:09 | Emergency (ER) | payer OTHER ==
[2019-11-18] MEDS ORDERED: Sodium Chloride 0.9% 1000 ML 1,000 ML IV STA (15:59)
[2019-11-18] MEDS ORDERED: MORPHINE SULFATE 4 MG INJ IV ONE (16:02)
[2019-11-18] MEDS ORDERED: Zofran 4 MG/2 ML VIAL IV ONE (16:03)
--- NOTE | 2019-11-18 16:07 | ERPHSYRPT ---
- History of Present Illness Time Seen by Provider: 11/18/19 15:44 Source: patient Exam Limitations: no limitations Physician History: 54 years old female presented in the ER with flulike symptoms. Patient report almost 5 days ago she started to have body aches with chills followed by vomiting and diarrhea which is improved now and later started to have nonproductive cough with nasal congestion and no feeling short of breath. Patient did travel to [facility] almost a week ago. No known positive coronavirus contact although. Timing/Duration: day(s) (5), gradual onset, worse Cough Quality/Degree: dry cough Modifying Factors: Improves With: coughing, rest Associated Symptoms: fever, chills, chest pain/soreness, cough, dizziness, headache, muscle aches, nasal congestion, shortness of breath, sore throat Allergies/Adverse Reactions: cefoxitin [Cefoxitin] Allergy (Verified 11/18/19 16:06) Hives morphine Allergy (Verified 11/18/19 16:06) Itching, Nausea Home Medications: Alprazolam 1 mg [Xanax 1 mg] 1 mg PO DAILY 11/18/19 [History] Folic Acid 0.4 mg PO DAILY 11/18/19 [History] Loratadine 10 mg [Claritin 10 mg] 10 mg PO DAILY 11/18/19 [History] Multivitamin [Multi-Vitamin Daily] 1 each PO DAILY 11/18/19 [History] Ondansetron HCl [Zofran] 4 mg PO Q8HPRN PRN 11/18/19 [History] PANTOPRAZOLE 40 mg Tablet [Protonix 40MG Tablet] 40 mg PO DAILY 11/18/19 [ History] Sertraline HCl 50 mg [Zoloft 50 mg Tablet] 50 mg PO DAILY 11/18/19 [History] Sumatriptan Succinate [Imitrex] 100 mg PO UD 11/18/19 [History] Trazodone HCl [Desyrel] 100 mg PO HS 11/18/19 [History] Vit B1 Mn/B2/B3/B5/B6/B12/C/FA [B Complex with Vitamin C Tab] 1 each PO DAILY [History] Hx Tetanus, Diphtheria Vaccination/Date Given: Yes Hx Influenza Vaccination/Date Given: No Hx Pneumococcal Vaccination/Date Given: No Travel Risk - International Travel Have you traveled outside of the country in past 3 weeks: No Have you or anyone close to you been diagnosed with or: No Do your reside in a community with a known COVID-19 case?: Yes If Yes where:: [place] - Coronavirus Screening Has patient experienced Coronavirus symptoms: Yes - Review of Systems Constitutional: Fever, Chills, Fatigue, Malaise Eyes: No Symptoms Ears, Nose, & Throat: Nose Congestion, Throat Pain Respiratory: Cough Cardiac: Chest Pain Abdominal/Gastrointestinal: Nausea, Vomiting, Diarrhea Genitourinary Symptoms: No Symptoms Musculoskeletal: Myalgias Skin: No Symptoms Neurological: No Symptoms Psychological: No Symptoms Endocrine: No Symptoms Hematologic/Lymphatic: No Symptoms Immunological/Allergic: No Symptoms - Past Medical History Pertinent Past Medical History: Yes Neurological History: No Pertinent History ENT History: No Pertinent History Cardiac History: No Pertinent History Respiratory History: No Pertinent History Endocrine Medical History: No Pertinent History Musculoskeletal History: No Pertinent History History: Other Psycho-Social History: Anxiety, Depression Other Medical History: hiatal hernia - Past Surgical History Past Surgical History: Yes Female Surgical History: Hysterectomy Other Surgical History: bone marrow - Social History Smoking Status: Current every day smoker How long have you smoked: 4 Exposure to second hand smoke: Yes Drug Use: none Patient Lives Alone: No - Nursing Vital Signs Nursing Vital Signs: Initial Vital Signs Temperature 98.3 F 11/18/19 15:50 Pulse Rate 88 11/18/19 15:50 Respiratory Rate 20 11/18/19 15:50 Blood Pressure 161/119 11/18/19 15:50 O2 Sat by Pulse Oximetry 99 11/18/19 15:50 Pain Scale Pain Intensity 5 - Physical Exam General Appearance: no apparent distress Eye Exam: PERRL/EOMI, eyes nml inspection Ears, Nose, Throat Exam: pharyngeal erythema Neck Exam: normal inspection, non-tender, supple, full range of motion Respiratory Exam: normal breath sounds, lungs clear, No respiratory distress Cardiovascular Exam: regular rate/rhythm, normal heart sounds, normal peripheral pulses Gastrointestinal/Abdomen Exam: soft, normal bowel sounds, No tenderness, No distention Back Exam: normal inspection, normal range of motion Extremity Exam: normal inspection, normal range of motion, pelvis stable Neurologic Exam: alert, oriented x 3, cooperative, ambulatory analyst II-XII nml as tested Skin Exam: normal color SpO2 Interpretation: normal O2 Delivery: Room Air - Course Nursing assessment & vital signs reviewed: Yes Ordered Tests: Active Orders 24 hr Category Date Time Status IV Insertion STAT Care 11/18/19 15:59 Active CHEST 1 VIEW (PORTABLE) Stat Exams 11/18/19 16:01 Completed CBC W DIFF Stat Lab 11/18/19 15:59 Completed CMP Stat Lab 11/18/19 15:59 Completed LIPASE Stat Lab 11/18/19 15:59 Completed Lactic Acid Stat Lab 11/18/19 16:20 Completed Medication Summary Discontinued Medications Generic Name Dose Route Start Last Admin Trade Name Freq PRN Reason Stop Dose Admin Sodium Chloride 1,000 mls @ 999 mls/hr 11/18/19 15:59 11/18/19 18:07 Sodium Chloride 0.9% 1000 Ml IV 11/18/19 16:59 Infused .Q1H1M STA Infusion Sodium Chloride Confirm 11/18/19 16:36 Sodium Chloride 0.9% 1000 Ml Administered 11/18/19 16:37 Dose 1,000 mls @ ud .ROUTE .STK-MED ONE Morphine Sulfate 4 mg 11/18/19 16:02 11/18/19 16:50 Morphine Sulfate 4 Mg Inj IV 11/18/19 16:03 Not Given STAT ONE Morphine Sulfate Confirm 11/18/19 16:35 Morphine Sulfate 4 Mg Inj Administered 11/18/19 16:36 Dose 4 mg .ROUTE .STK-MED ONE Ondansetron HCl 4 mg 11/18/19 16:03 11/18/19 16:41 Zofran 4 Mg/2 Ml Vial IV 11/18/19 16:04 4 mg STAT ONE Administration Ondansetron HCl Confirm 11/18/19 16:35 Zofran 4 Mg/2 Ml Vial Administered 11/18/19 16:36 Dose 4 mg .ROUTE .STK-MED ONE Lab/Rad Data: Laboratory Result Diagrams 11/18/19 15:59 11/18/19 15:59 Laboratory Results 11/18/19 11/18/19 11/18/19 Range/Units 16:20 15:59 15:59 WBC (4.0-10.5) K/mm3 RBC (4.1-5.4) M/mm3 Hgb (12.0-16.0) gm/dl Hct (35-47) % MCV (78-100) fl MCH (26-32) pg MCHC (32-36) g/dl RDW (11.5-14.0) % Plt Count (150-450) K/mm3 MPV (7.5-11.0) fl Gran % (36.0-66.0) % Eos # (Auto) (0-0.5) Absolute Lymphs (auto) (1.0-4.6) Absolute Monos (auto) (0.0-1.3) Lymphocytes % (24.0-44.0) % Monocytes % (0.0-12.0) % Eosinophils % (0.00-5.0) % Basophils % (0.0-0.4) % Absolute Granulocytes (1.4-6.9) Basophils # (0-0.4) Sodium (137-145) mmol/L Potassium (3.5-5.1) mmol/L Chloride (98-107) mmol/L Carbon Dioxide (22-30) mmol/L Anion Gap (5-15) MEQ/L BUN (7-17) mg/dL Creatinine (0.52-1.04) mg/dL Estimated GFR ML/MIN Glucose (74-106) mg/dL Lactic Acid 0.8 (0.4-2.0) Calcium (8.4-10.2) mg/dL Total Bilirubin (0.2-1.3) mg/dL AST (14-36) U/L ALT (0-35) U/L Alkaline Phosphatase (38-126) U/L Serum Total Protein (6.3-8.2) g/dL Albumin (3.5-5.0) g/dL Lipase 52 (23-300) U/L Influenza Type A Ag NEGATIVE (NEGATIVE) Influenza Type B Ag NEGATIVE (NEGATIVE) RSV (PCR) NEGATIVE (Negative) Group A Strep Antibody NOT DETECTED (NEGATIVE) 11/18/19 11/18/19 Range/Units 15:59 15:59 WBC 7.4 (4.0-10.5) K/mm3 RBC 3.79 L (4.1-5.4) M/mm3 Hgb 12.2 (12.0-16.0) gm/dl Hct 36.9 (35-47) % MCV 97.4 (78-100) fl MCH 32.2 H (26-32) pg MCHC 33.1 (32-36) g/dl RDW 12.7 (11.5-14.0) % Plt Count 377 (150-450) K/mm3 MPV 9.3 (7.5-11.0) fl Gran % 58.8 (36.0-66.0) % Eos # (Auto) 0.14 (0-0.5) Absolute Lymphs (auto) 2.40 (1.0-4.6) Absolute Monos (auto) 0.47 (0.0-1.3) Lymphocytes % 32.4 (24.0-44.0) % Monocytes % 6.4 (0.0-12.0) % Eosinophils % 1.9 (0.00-5.0) % Basophils % 0.5 (0.0-0.4) % Absolute Granulocytes 4.35 (1.4-6.9) Basophils # 0.04 (0-0.4) Sodium 140 (137-145) mmol/L Potassium 3.7 (3.5-5.1) mmol/L Chloride 105 (98-107) mmol/L Carbon Dioxide 26 (22-30) mmol/L Anion Gap 12.0 (5-15) MEQ/L BUN 12 (7-17) mg/dL Creatinine 0.58 (0.52-1.04) mg/dL Estimated GFR > 60.0 ML/MIN Glucose 94 (74-106) mg/dL Lactic Acid (0.4-2.0) Calcium 9.1 (8.4-10.2) mg/dL Total Bilirubin 0.40 (0.2-1.3) mg/dL AST 24 (14-36) U/L ALT 16 (0-35) U/L Alkaline Phosphatase 63 (38-126) U/L Serum Total Protein 7.2 (6.3-8.2) g/dL Albumin 4.2 (3.5-5.0) g/dL Lipase (23-300) U/L Influenza Type A Ag (NEGATIVE) Influenza Type B Ag (NEGATIVE) RSV (PCR) (Negative) Group A Strep Antibody (NEGATIVE) - Progress Progress: re-examined Air Movement: good Progress Note: 11/18/19 54 years old is evaluated for flulike symptoms. Work-up is grossly negative. She is given fluids, on reevaluation feeling better. She does not have a fever while in the ER. Does not look toxic. Not in any distress. Discussed with employee health about obtaining coronavirus testing but was recommended to have a house quarantine for 14 days. Discussed with patient in detail about quarantine which she seems understanding. Discussed signs symptoms of worsening needing return to ER. Stable for discharge. 11/18/19 18:15 Antibiotics given: No Counseled pt/family regarding: lab results, diagnosis, need for follow-up, rad results, smoking cessation - Departure Departure Disposition: Home Clinical Impression: Viral syndrome Condition: Stable Critical Care Time: No Referrals: XENIA MCCANN MD [Primary Care Provider] - Follow Up with PCP/3 days Instructions: Viral Syndrome (DC) Additional Instructions: Take Tylenol as needed. Drink plenty of fluids. Take [id number] cough medications as needed. Stay home for next 14 days and follow social distancing/ droplet/contact precautions. Follow-up with primary care for reevaluation. Return to ER for any worsening.
--- NOTE | 2019-11-18 16:32 | XRAY ---
Indication: Cough and headache. Comparison: June 26, 2018. Portable chest again demonstrates normal heart and lungs. Bony thorax intact again with mild degenerative changes and old left 10 rib fracture.
[2019-11-18 16:35] LABS: Absolute Neutrophil Ct (ANC) 4.35 (1.4-6.9); BASOPHIL % 0.5 % (0.0-0.4); Basophil (Absolute #) 0.04 (0-0.4); Eosinophil % 1.9 % (0.00-5.0); Eosinophil (Absolute #) 0.14 (0-0.5); Hematocrit 36.9 % (35-47); Hemoglobin 12.2 gm/dl (12.0-16.0); Lymphocytes % 32.4 % (24.0-44.0); Mean Cell Volume 97.4 fl (78-100); Mean Corpuscular Hemoglobin 32.2 pg (26-32); Mean Corpuscular Hgb Concent. 33.1 g/dl (32-36); Mean Platelet Volume 9.3 fl (7.5-11.0); Monocyte (Absolute #) 0.47 (0.0-1.3); Monocytes % 6.4 % (0.0-12.0); Neutrophil % 58.8 % (36.0-66.0); Platelet Count 377 K/mm3 (150-450); Red Blood Count 3.79 M/mm3 (4.1-5.4); Red Cell Distribution Width 12.7 % (11.5-14.0); White Blood Count 7.4 K/mm3 (4.0-10.5)
[2019-11-18] MEDS ORDERED: MORPHINE SULFATE 4 MG INJ ONE (16:35)
[2019-11-18] MEDS ORDERED: Zofran 4 MG/2 ML VIAL ONE (16:35)
[2019-11-18] MEDS ORDERED: Sodium Chloride 0.9% 1000 ML 1,000 ML ONE (16:36)
[2019-11-18 16:49] LABS: ALBUMIN 4.2 g/dL (3.5-5.0); ALKALINE PHOSPHATASE 63 U/L (38-126); BLOOD UREA NITROGEN 12 mg/dL (7-17); CHLORIDE 105 mmol/L (98-107); Calcium 9.1 mg/dL (8.4-10.2); Carbon Dioxide 26 mmol/L (22-30); Creatinine 1 0.58 mg/dL (0.52-1.04); Glucose 94 mg/dL (74-106); Potassium 3.7 mmol/L (3.5-5.1); SGOT/AST 24 U/L (14-36); SGPT/ALT 16 U/L (0-35); SODIUM 140 mmol/L (137-145); Total Protein 7.2 g/dL (6.3-8.2)
[2019-11-18 17:16] LABS: INFLUENZA A NEGATIVE (NEGATIVE); INFLUENZA B NEGATIVE (NEGATIVE); RESPIRATORY SYNCTIAL VIRUS NEGATIVE (Negative)
[2019-11-18 18:17] VITALS: BP 149/84; PULSE 98; O2SAT 97
== END 2019-11-18 18:15 | disposition home or self-care (01) ==
LOC: ED 15:09
DX: B34.9 Viral infection, unspecified (principal)
CPT/HCPCS: 36000; 36415; 71045; 80053; 83605; 83690; 85025; 87631; 87651; 96360; 96361; 96374; 99284; J2270; J2405

== ENCOUNTER 2023-04-10 16:06 | Emergency (ER) | payer OTHER ==
--- NOTE | 2023-04-10 16:26 | ERPHSYRPT ---
- History of Present Illness Time Seen by Provider: 04/10/23 16:25 Source: patient Allergies/Adverse Reactions: cefoxitin [Cefoxitin] Allergy (Verified 11/18/19 16:06) Hives morphine Allergy (Verified 11/18/19 16:06) Itching, Nausea Home Medications: ALPRAZolam 1 MG [Xanax 1 mg] 1 mg PO DAILY 11/18/19 [History] Folic Acid 0.4 mg PO DAILY 11/18/19 [History] Loratadine 10 mg [Claritin 10 mg] 10 mg PO DAILY 11/18/19 [History] Multivitamin [Multi-Vitamin Daily] 1 each PO DAILY 11/18/19 [History] PANTOPRAZOLE 40 mg Tablet [Protonix 40MG Tablet] 40 mg PO DAILY 11/18/19 [History] SUMAtriptan succinate [Imitrex] 100 mg PO UD 11/18/19 [History] Sertraline HCl 50 mg [Zoloft 50 mg Tablet] 50 mg PO DAILY 11/18/19 [History] Trazodone HCl [Desyrel] 100 mg PO HS 11/18/19 [History] Vit B1 Mn/B2/B3/B5/B6/B12/C/FA [B Complex with Vitamin C Tab] 1 each PO DAILY 11/18/19 [History] ondansetron HCL [Zofran] 4 mg PO Q8HPRN PRN 11/18/19 [History] Hx Tetanus, Diphtheria Vaccination/Date Given: Yes Hx Influenza Vaccination/Date Given: No Hx Pneumococcal Vaccination/Date Given: No - Past Medical History Pertinent Past Medical History: Yes Neurological History: No Pertinent History ENT History: No Pertinent History Cardiac History: No Pertinent History Respiratory History: No Pertinent History Endocrine Medical History: No Pertinent History Musculoskeletal History: No Pertinent History GI Medical History: GERD, Pancreatitis, Ulcer History: Other Psycho-Social History: Anxiety, Depression Other Medical History: hiatal hernia - Past Surgical History Past Surgical History: Yes Female Surgical History: Hysterectomy Other Surgical History: bone marrow - Social History Smoking Status: Current every day smoker How long have you smoked: 4 Exposure to second hand smoke: Yes Drug Use: none Patient Lives Alone: No - Departure Referrals: MCCANN,XENIA JAVIER, MD [Primary Care Provider] - Follow up/PCP as directed
== END 2023-04-10 16:40 | disposition left against medical advice (07) ==
LOC: ED 16:06
DX: Z53.21 Procedure and treatment not carried out due to patient leaving prior to being seen by health care provider (principal)
CPT/HCPCS: 99281